=== PATIENT | female | born 1970 | race Caucasian/White ===

== ENCOUNTER 2022-03-06 23:53 | Emergency (ER) | payer SELFPAY ==
[~2022-03-06] VITALS: Ht 157.5 cm; Wt 73.0 kg
[2022-03-07] MEDS ORDERED: ASPIRIN 325MG EC TABLET PO ONE (00:45)
[2022-03-07 01:06] LABS: BASOPHILS % 0.8 % (0.0-2.0); EOSINOPHILS % 3.4 % (0.0-5.0); HEMATOCRIT. 35.8 % (36.0-48.0); HEMOGLOBIN. 11.7 g/dL (12.0-16.0); LYMPHOCYTES % 25.4 % (20.0-50.0); MEAN CORPUSCULAR HEMOGLOBIN 27.1 pg (28.0-32.0); MEAN PLATELET VOLUME 8.4 fl (7.4-10.4); MONOCYTES % 7.7 % (2.0-8.0); NEUTROPHILS % 62.7 % (40.0-76.0); PLATELET 306 x1000/uL (130-400); RED BLOOD CELL COUNT 4.31 mill/uL (4.2-5.4); RED CELL DISTRIBUTION WIDTH 14.1 % (11.6-14.6)
[2022-03-07 01:59] LABS: CHLORIDE 108 mEq/L (98-107)
[2022-03-07 02:09] LABS: ETHANOL BLOOD < 10 mg/dL
[2022-03-07] MEDS ORDERED: KETOROLAC 15MG/ML VIAL IV ONE (03:45)
[2022-03-07] MEDS ORDERED: DIPHENHYDRAMINE 50MG/ML VIAL IV ONE (03:45)
[2022-03-07] MEDS ORDERED: PROCHLORPERAZINE MALEATE 10MG TABLET PO ONE (03:45)
[2022-03-07] MEDS ORDERED: IBUP-2029 MT (04:31)
[2022-03-07 04:55] VITALS: BP 121/78
== END 2022-03-07 05:30 | disposition home or self-care (01) ==
LOC: ER 23:53
DX: R51.9 Headache, unspecified (principal); R55 Syncope and collapse; D64.9 Anemia, unspecified; Z98.51 Tubal ligation status
CPT/HCPCS: 36415; 70450; 71045; 80053; 80320; 83880; 84484; 85025; 93005; 96374; 96375; 99285; J1200; J1885; Q0164; G0480

== ENCOUNTER 2023-03-12 19:59 | Emergency (ER) | payer OTHER ==
[~2023-03-12] VITALS: Ht 160 cm; Wt 75.0 kg
[~2023-03-12 19:59] MED LIST: IBUP-2029 MT
[2023-03-12 20:11] VITALS: BP 134/89; O2SAT 97
[2023-03-12 21:49] LABS: BASOPHILS % 0.3 % (0.0-2.0); EOSINOPHILS % 0.1 % (0.0-5.0); HEMATOCRIT. 36.4 % (36.0-48.0); HEMOGLOBIN. 11.7 g/dL (12.0-16.0); LYMPHOCYTES % 15.5 % (20.0-50.0); MEAN CORPUSCULAR HEMOGLOBIN 27.3 pg (28.0-32.0); MEAN CORPUSCULAR HGB CONC 32.3 g/dL (31.0-37.0); MEAN CORPUSCULAR VOLUME 84.7 fL (81.0-99.0); MEAN PLATELET VOLUME 8.3 fl (7.4-10.4); MONOCYTES % 13.1 % (2.0-8.0); PLATELET 258 x1000/uL (130-400); RED BLOOD CELL COUNT 4.29 mill/uL (4.2-5.4); RED CELL DISTRIBUTION WIDTH 13.7 % (11.6-14.6); WHITE BLOOD COUNT 7.3 x1000/uL (4.5-11.0)
[2023-03-12 22:02] LABS: ALANINE AMINOTRANSFERASE 19 IU/L (10-49); ALBUMIN 4.3 g/dL (3.2-4.8); ASPARTATE AMINOTRANSFERASE 22 IU/L (<34); BILIRUBIN TOTAL 0.5 mg/dL (0.1-1.0); CALCIUM 8.9 mg/dL (8.7-10.4); CARBON DIOXIDE 27 mEq/L (21-32); CHLORIDE 102 mEq/L (98-107); CREATININE 0.8 mg/dL (0.6-1.0); GLUCOSE 98 mg/dL (70-105); POTASSIUM 3.6 mEq/L (3.5-5.1); PROTEIN TOTAL 7.6 g/dL (6.0-8.3); SODIUM 137 mEq/L (136-145); UREA NITROGEN BLOOD 9 mg/dL (9-23)
[2023-03-13 10:35] LABS: TROPONIN I HIGH SENSITIVITY < 4 ng/L (3.0-34)
[2023-03-13] MEDS ORDERED: ACETAMINOPHEN 325MG TABLET PO ONE (12:00)
[2023-03-13 12:09] VITALS: PULSE 124; RESP 18; TEMP 98.4
[2023-03-13 12:11] LABS: CLARITY URINE CLOUDY (CLEAR); COLOR URINE DARK YELLOW (YELLOW); GLUCOSE URINE NEGATIVE (NEGATIVE); KETONES URINE 1+ (NEGATIVE); LEUKOCYTE ESTERASE URINE NEGATIVE (NEGATIVE); NITRITE URINE NEGATIVE (NEGATIVE); OCCULT BLOOD URINE TRACE (NEGATIVE); PH URINE 5.5 (4.5-8.0); PROTEIN URINE 1+ (NEGATIVE); SPECIFIC GRAVITY URINE 1.037 (1.005-1.030)
[2023-03-13 13:46] LABS: MUCUS URINE 3+ /lpf (< = 2+); SQUAMOUS EPITHELIAL CELL URINE 1+ /lpf (RARE/1+)
[2023-03-13 13:48] LABS: BACTERIA URINE 1+; RBC URINE 0-2 /hpf (0-2); WBC URINE 0-2 /hpf (0-2)
== END 2023-03-13 12:10 | disposition home or self-care (01) ==
LOC: ER 19:59
DX: R53.1 Weakness (principal); B34.9 Viral infection, unspecified; Z20.822 Contact with and (suspected) exposure to COVID-19
CPT/HCPCS: 80053; 81025; 85025; 86850; 86900; 86901; 36415 ×2; 93005; 99285; 81003; 83880; 84484; 87804 ×2; 71045; 87426; C9803; Z7610